=== PATIENT | female | born 1970 | race Caucasian/White ===

== ENCOUNTER 2020-03-07 10:25 | Emergency (ER) | payer OTHER ==
[2020-03-07] MEDS ORDERED: NA CHLORIDE 0.9% 500 ML ONE (11:29)
[2020-03-07 11:34] LABS: Absolute Lymphocytes (CBC) 2.3 K/uL (0.7-4.9); Basophils % 0.3 % (0-1.3); Hematocrit 41.5 % (36.0-45.0); Lymphocytes % 29.2 % (15.3-44.8); MPV 9.3 fL (7.6-11.3); RBC Red Blood Cell Count 4.67 M/uL (3.86-4.86)
--- NOTE | 2020-03-07 11:40 | RAD REPORT ---
EXAM DESCRIPTION: Pieter Single View03/07/2020 11:34 am CLINICAL HISTORY: Chest pain COMPARISON: 2017 FINDINGS: The lungs appear clear of acute infiltrate. The heart is normal size IMPRESSION: No acute abnormalities displayed
[2020-03-07 11:59] LABS: ALT/SGPT 28 U/L (12-78); AST/SGOT 15 U/L (15-37); Albumin 3.6 g/dL (3.4-5.0); Alkaline Phosphatase 113 U/L (45-117); BUN Blood Urea Nitrogen 11 mg/dL (7-18); Bicarbonate 29 mmol/L (21-32); Bilirubin Direct 0.1 mg/dL (0-0.2); Bilirubin Total 0.3 mg/dL (0.2-1.0); Glucose Level 107 mg/dL (74-106); Magnesium 2.4 mg/dL (1.8-2.4); NT PRO-BNP 148 pg/mL (<125); Potassium 4.2 mmol/L (3.5-5.1); Protein, Total 7.6 g/dL (6.4-8.2); Sodium Level 143 mmol/L (136-145); Troponin (Emerg Dept Use Only) < 0.02 ng/mL (0.0-0.045)
[2020-03-07 12:10] LABS: Urine Blood 1+ (NEG); Urine Glucose NEGATIVE (NEG); Urine Protein NEGATIVE (NEG); Urine pH 6.5 (5.0-7.0)
--- NOTE | 2020-03-07 12:19 | RAD REPORT ---
EXAM DESCRIPTION: CT - Head C Spine Mpr Wo Con - 03/07/2020 12:08 pm CLINICAL HISTORY: Numbness and radiculopathy COMPARISON: None. TECHNIQUE: Computed axial tomography of the head and cervical spine was obtained. Sagittal and coronal reconstruction was performed. All CT scans are performed using dose optimization technique as appropriate and may include automated exposure control or mA/KV adjustment according to patient size. FINDINGS: An intracranial bleed is not seen. The ventricles are normal in caliber. An extra-axial fl uid collection is not noted.Fluid within the visualized sinuses and mastoids is not seen A cervical fracture is not visualized. No dislocation is noted. Spinal stenosis is not noted. A large disc bulge/herniation not seen IMPRESSION: No acute intracranial abnormality is seen. A cervical fracture is not visualized. No spinal stenosis. If the patient continues to have symptoms to suggest intracranial /spinal cord/spinal canal pathology then MRI would be recommended
--- NOTE | 2020-03-07 12:22 | ER ---
Nurse's Notes [facility] Name: Venice Esteves Age: 49 yrs Sex: Female : 1970 Arrival Date: 03/07/2020 Time: 10:27 Bed 13 Private MD: Diagnosis: Pain in right forearm;Pain in right upper arm;Fibromyalgia Presentation: 03/07 10:42 Chief complaint: Patient states: "my right forearm started feeling sensitive on Saturday aa5 and now the feeling is going up my arm, it also hurts, like it correia and stings but also feels numb and tingling". Pt states "other than my arm, I feel fine". 10:42 Acuity: AAKASH 3 aa5 10:42 Method Of Arrival: Ambulatory aa5 10:42 Coronavirus screen: Client denies travel out of the [place] in the last 14 days. Pt aa5 reports baseline smoker's cough. Ebola Screen: Patient negative for fever greater than or equal to 101.5 degrees Fahrenheit, and additional compatible Ebola Virus Disease symptoms. Initial Sepsis Screen: Does the patient meet any 2 criteria? No. Patient's initial sepsis screen is negative. Does the patient have a suspected source of infection? No. Patient's initial sepsis screen is negative. Risk Assessment: Do you want to hurt yourself or someone else? Patient reports no desire to harm self or others. Onset of symptoms was February 2020. 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 - Social history:: Smoking status: Patient reports the use of cigarette tobacco products, smokes one pack cigarettes per day. - Family history:: not pertinent. Screenin:00 Abuse screen: Denies threats or abuse. Denies injuries from another. Nutritional ca1 screening: No deficits noted. Tuberculosis screening: No symptoms or risk factors identified. Fall Risk IV access (20 points). Assessment: 11:00 General: Appears in no apparent distress. comfortable, Behavior is calm, cooperative, ca1 appropriate for age. Pain: Complains of pain in right arm Pain does not radiate. Pain currently is 5 out of 10 on a pain scale. Quality of pain is described as throbbing, Pain began 4 days ago Is continuous. Neuro: Level of Consciousness is awake, alert, obeys commands, Oriented to person, place, time, situation. Cardiovascular: Heart tones S1 S2 Capillary refill < 3 seconds Patient's skin is warm and dry. Rhythm is sinus rhythm. Respiratory: Airway is patent Respiratory effort is even, unlabored, Respiratory pattern is regular, symmetrical, Breath sounds are clear bilaterally. GI: Abdomen is round non-distended, Bowel sounds present X 4 quads. Abd is soft and non tender X 4 quads. : No deficits noted. No signs and/or symptoms were reported regarding the genitourinary system. EENT: No deficits noted. No signs and/or symptoms were reported regarding the EENT system. Derm: Skin is intact, is healthy with good turgor, Skin is pink, warm \\T\\ dry. Musculoskeletal: Circulation, motion, and sensation intact. Capillary refill < 3 seconds. 11:51 Reassessment: Patient appears in no apparent distress at this time. Patient and/or ca1 family updated on plan of care and expected duration. Pain level reassessed. Patient is alert, oriented x 3, equal unlabored respirations, skin warm/dry/pink. 12:26 Reassessment: Patient appears in no apparent distress at this time. Patient is alert, ca1 oriented x 3, equal unlabored respirations, skin warm/dry/pink. Vital Signs: 10:42 BP 123 / 78; Pulse 80; Resp 18 S; Temp 98.1(O); Pulse Ox 100% on R/A; Weight 86.18 kg aa5 (R); Height 5 ft. 4 in. (162.56 cm) (R); Pain 5/10; 11:51 BP 123 / 76; Pulse 83; Resp 15 S; Pulse Ox 100% on R/A; ca1 11:58 BP 124 / 72 RA; ca1 11:58 BP 121 / 70 LA; ca1 12:26 BP 130 / 80; Pulse 75; Resp 15 S; Pulse Ox 100% on R/A; ca1 10:42 Body Mass Index 32.61 (86.18 kg, 162.56 cm) aa5 ED Course: 10:27 Patient arrived in ED. ag5 10:42 Arm band placed on Patient placed in an exam room, on a stretcher. aa5 10:54 Acob, Lali, RN is Primary Nurse. ca1 10:56 Thee Ojeda MD is Attending Physician. adilene 11:00 Patient has correct armband on for positive identification. Placed in gown. Bed in low ca1 position. Call light in reach. Side rails up X2. residential monitor on. Pulse ox on. NIBP on. Warm blanket given. 11:02 Triage completed. aa5 11:10 No provider procedures requiring assistance completed. Initial lab(s) drawn, by tx, ca1 sent to lab. Inserted saline lock: 20 gauge in left antecubital area, using aseptic technique. Blood collected. 11:28 EKG done, by technology trainer. reviewed by Thee Ojeda MD. at1 11:30 Urine collected: clean catch specimen, clear. ca1 11:34 XRAY Chest (1 view) In Process Unspecified. EDMS 12:06 CT Head C Spine In Process Unspecified. EDMS 12:21 Jonas Payton MD is Referral Physician. adilene 12:21 Regan Carlos MD is Referral Physician. adilene 12:43 IV discontinued, intact, bleeding controlled, No redness/swelling at site. Pressure ca1 dressing applied. Administered Medications: 11:10 Drug: NS 0.9% 500 ml Route: IV; Rate: bolus; Site: left antecubital; ca1 11:50 Follow up: Response: No adverse reaction; IV Status: Completed infusion; IV Intake: ca1 500ml 12:17 Drug: ProTONIX 40 mg Route: IVP; Site: left antecubital; ca1 12:40 Follow up: Response: No adverse reaction ca1 12:19 Drug: Aspirin 162 mg Route: PO; ca1 12:40 Follow up: Response: No adverse reaction ca1 12:23 Drug: Decadron - Dexamethasone 10 mg Route: IVP; Site: left antecubital; ca1 12:40 Follow up: Response: No adverse reaction ca1 Intake: 11:50 IV: 500ml; Total: 500ml. ca1 Outcome: 12:21 Discharge ordered by . adilene 12:43 Discharged to home ambulatory. ca1 12:43 Condition: stable 12:43 Discharge instructions given to patient, Instructed on discharge instructions, follow up and referral plans. medication usage, Demonstrated understanding of instructions, follow-up care, medications, Prescriptions given X 4. 12:43 Patient left the ED. ca1 Signatures: Dispatcher [employer] Thee Luz MD MD cha Calderon, Audri RN RN aa5 Sindy Benavides, machine set up EKG Tat1 Lali Lerner RN RN ca1 Virgil Louis ag5 Corrections: (The following items were deleted from the chart) 11:04 10:42 Coronavirus screen: Client denies travel out of the [place] in the last 14 days. aa5 aa5
--- NOTE | 2020-03-07 12:22 | EDPHYS ---
Physician Documentation [facility] Name: Venice Esteves Age: 49 yrs Sex: Female : 1970 Arrival Date: 03/07/2020 Time: 10:27 Bed 13 Private MD: ED Physician Thee Ojeda HPI: 03/07 12:08 This 49 yrs old Female presents to ER via Ambulatory with complaints of Arm adilene Pain, Numbness. 12:08 The patient or guardian complains of pain, that is acute. The complaints affect the adilene right bicep, dorsal aspect of right forearm, right tricep and palmar aspect of right forearm. Context: The problem was sustained at an unknown location, resulted from unknown cause. Onset: The symptoms/episode began/occurred 3 day(s) ago. Treatment prior to arrival includes: no previous treatment. Modifying factors: The symptoms are alleviated by nothing. Associated signs and symptoms: The patient has no apparent associated signs or symptoms. Severity of symptoms: At their worst the symptoms were mild, in the emergency department the symptoms are unchanged. The patient has not experienced similar symptoms in the past. 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 - Social history:: Smoking status: Patient reports the use of cigarette tobacco products, smokes one pack cigarettes per day. - Family history:: not pertinent. ROS: 12:08 Constitutional: Negative for fever, chills, and weight loss, Eyes: Negative for injury, adilene pain, redness, and discharge, ENT: Negative for injury, pain, and discharge, Cardiovascular: Negative for chest pain, palpitations, and edema, Respiratory: Negative for shortness of breath, cough, wheezing, and pleuritic chest pain, Abdomen/GI: Negative for abdominal pain, nausea, vomiting, diarrhea, and constipation, Back: Negative for injury and pain, : Negative for injury, bleeding, discharge, and swelling, Skin: Negative for injury, rash, and discoloration, Neuro: Negative for headache, weakness, numbness, tingling, and seizure, Psych: Negative for depression, anxiety, suicide ideation, homicidal ideation, and hallucinations, Allergy/Immunology: Negative for hives, rash, and allergies, Endocrine: Negative for neck swelling, polydipsia, polyuria, polyphagia, and marked weight changes, Hematologic/Lymphatic: Negative for swollen nodes, abnormal bleeding, and unusual bruising. 12:08 Neck: Positive for pain with movement, pain at rest. 12:08 MS/extremity: Positive for pain, of the right arm. Exam: 12:08 Constitutional: This is a well developed, well nourished patient who is awake, alert, adilene and in no acute distress. Head/Face: Normocephalic, atraumatic. Eyes: Pupils equal round and reactive to light, extra-ocular motions intact. Lids and lashes normal. Conjunctiva and sclera are non-icteric and not injected. Cornea within normal limits. Periorbital areas with no swelling, redness, or edema. ENT: Nares patent. No nasal discharge, no septal abnormalities noted. Tympanic membranes are normal and external auditory canals are clear. Oropharynx with no redness, swelling, or masses, exudates, or evidence of obstruction, uvula midline. Mucous membranes moist. Neck: Trachea midline, no thyromegaly or masses palpated, and no cervical lymphadenopathy. Supple, full range of motion without nuchal rigidity, or vertebral point tenderness. No Meningismus. Chest/axilla: Normal chest wall appearance and motion. Nontender with no deformity. No lesions are appreciated. Cardiovascular: Regular rate and rhythm with a normal S1 and S2. No gallops, murmurs, or rubs. Normal PMI, no JVD. No pulse deficits. Respiratory: Lungs have equal breath sounds bilaterally, clear to auscultation and percussion. No rales, rhonchi or wheezes noted. No increased work of breathing, no retractions or nasal flaring. Abdomen/GI: Soft, non-tender, with normal bowel sounds. No distension or tympany. No guarding or rebound. No evidence of tenderness throughout. Back: No spinal tenderness. No costovertebral tenderness. Full range of motion. Skin: Warm, dry with normal turgor. Normal color with no rashes, no lesions, and no evidence of cellulitis. MS/ Extremity: Pulses equal, no cyanosis. Neurovascular intact. Full, normal range of motion. Neuro: Awake and alert, GCS 15, oriented to person, place, time, and situation. Cranial nerves II-XII grossly intact. Motor strength 5/5 in all extremities. Sensory grossly intact. Cerebellar exam normal. Normal gait. Psych: Awake, alert, with orientation to person, place and time. Behavior, mood, and affect are within normal limits. 12:08 Musculoskeletal/extremity: Extremities: all appear grossly normal, with no appreciated pain with palpation, ROM: full active range of motion, full passive range of motion, Pulses: noted to be 4+ in the bilateral radial, brachial, femoral, popliteal, posterior tibial and and dorsalis pedis arteries., Sensation intact. Compartment Syndrome exam of affected extremity: is normal. Joints: All joints appear normal with full range of motion. DVT Exam: no swelling, negative Homans' sign noted on exam, no appreciated bluish discoloration, no erythema, no increased warmth, pain, tenderness. 12:08 Neuro: Orientation: is normal, appropriate for stated age, no acute changes, Mentation: is normal, appropriate for stated age, no acute changes, Memory: is normal, appropriate for stated age, no acute changes, Cranial nerves: grossly normal, is grossly normal based on the patient's age, no acute changes, Cerebellar function: is grossly normal, is grossly normal based on the patient's age, no acute changes, Motor: is normal, Sensation: no obvious gross deficits, appropriate no acute changes, Gait: is steady, appropriate for age, Deep tendon reflexes are 2+ (normal) in the bilateral brachioradialis, bicep, tricep and patellar and Achilles tendons, Babinski testing is normal. Vital Signs: 10:42 BP 123 / 78; Pulse 80; Resp 18 S; Temp 98.1(O); Pulse Ox 100% on R/A; Weight 86.18 kg aa5 (R); Height 5 ft. 4 in. (162.56 cm) (R); Pain 5/10; 11:51 BP 123 / 76; Pulse 83; Resp 15 S; Pulse Ox 100% on R/A; ca1 11:58 BP 124 / 72 RA; ca1 11:58 BP 121 / 70 LA; ca1 12:26 BP 130 / 80; Pulse 75; Resp 15 S; Pulse Ox 100% on R/A; ca1 10:42 Body Mass Index 32.61 (86.18 kg, 162.56 cm) aa5 MDM: 10:56 Patient medically screened. [facility] 12:14 Differential diagnosis: contusion, tendonitis. Data reviewed: vital signs, nurses [facility] notes, lab test result(s), EKG, radiologic studies, CT scan, plain films. Data interpreted: radiation monitor: rate is 83 beats/min, rhythm is regular, Pulse oximetry: on room air is 100 %. Test interpretation: by ED physician or midlevel provider: ECG, plain radiologic studies. 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 03/07 10:57 Order name: Basic Metabolic Panel; Complete Time: 12:03 [facility] 03/07 10:57 Order name: CBC with Diff; Complete Time: 11:48 [facility] 03/07 10:57 Order name: LFT's; Complete Time: 12:03 [facility] 03/07 10:57 Order name: Magnesium; Complete Time: 12:03 [facility] 03/07 10:57 Order name: NT PRO-BNP; Complete Time: 12:03 [facility] 03/07 10:57 Order name: Troponin (emerg Dept Use Only); Complete Time: 12:03 [facility] 03/07 10:57 Order name: XRAY Chest (1 view); Complete Time: 11:48 [facility] 03/07 10:57 Order name: EKG; Complete Time: 10:58 [facility] 03/07 11:54 Order name: Urine Dipstick--Ancillary (enter results); Complete Time: 12:16 03/07 11:55 Order name: CT Head C Spine [facility] 03/07 10:57 Order name: Cardiac monitoring; Complete Time: 11:34 [facility] 03/07 10:57 Order name: EKG - Nurse/Tech; Complete Time: 11:34 [facility] 03/07 10:57 Order name: IV Saline Lock; Complete Time: 11:34 [facility] 03/07 10:57 Order name: Labs collected and sent; Complete Time: 11:34 [facility] 03/07 10:57 Order name: O2 Per Protocol; Complete Time: 11:34 [facility] 03/07 10:57 Order name: O2 Sat Monitoring; Complete Time: 11:34 [facility] 03/07 10:57 Order name: Urine Dipstick-Ancillary (obtain specimen); Complete Time: 11:34 [place] 03/07 11:55 Order name: Bilateral blood pressure; Complete Time: 11:58 adilene Administered Medications: 11:10 Drug: NS 0.9% 500 ml Route: IV; Rate: bolus; Site: left antecubital; ca1 11:50 Follow up: Response: No adverse reaction; IV Status: Completed infusion; IV Intake: ca1 500ml 12:17 Drug: ProTONIX 40 mg Route: IVP; Site: left antecubital; ca1 12:40 Follow up: Response: No adverse reaction ca1 12:19 Drug: Aspirin 162 mg Route: PO; ca1 12:40 Follow up: Response: No adverse reaction ca1 12:23 Drug: Decadron - Dexamethasone 10 mg Route: IVP; Site: left antecubital; ca1 12:40 Follow up: Response: No adverse reaction ca1 Disposition: 03/07/20 12:21 Discharged to Home. Impression: Pain in right forearm, Pain in right upper arm, Fibromyalgia. - Condition is Stable. - Discharge Instructions: Cervical Radiculopathy, Myofascial Pain Syndrome and Fibromyalgia, Musculoskeletal Pain, Cryotherapy, [id number], Cryotherapy, Cervical Radiculopathy, [id number]. - Prescriptions for Medrol (Loy) 4 mg Oral Tablets, Dose Pack - take 1 tablet by ORAL route as directed - follow package instructions; 1 packet. Motrin IB 200 mg Oral Tablet - take 2 tablet by ORAL route every 6 hours As needed as needed with food; 30 tablet. Cyclobenzaprine 5 mg Oral Tablet - take 1 tablet by ORAL route 3 times per day As needed; 15 tablet. Protonix 40 mg Oral Tablet - take 1 tablet by ORAL route once daily; 30 tablet. - Medication Reconciliation Form, Thank You Letter, Antibiotic Education, Prescription Opioid Use form. - Follow up: Private Physician; When: 2 - 3 days; Reason: Recheck today's complaints, Continuance of care, Re-evaluation by your physician. Follow up: Jonas Payton MD; When: 2 - 3 days; Reason: Recheck today's complaints, Continuance of care, Re-evaluation by your physician. Follow up: Regan Carlos MD; When: 2 - 3 days; Reason: Recheck today's complaints, Continuance of care, Re-evaluation by your physician. - Problem is new. - Symptoms have improved. Signatures: Dispatcher [employer] EDMS Thee Ojeda MD MD cha Calderon, Audri, RN RN aa5 Lali Lerner RN RN ca1 Corrections: (The following items were deleted from the chart) 12:43 12:21 03/07/2020 12:21 Discharged to Home. Impression: Pain in right forearm; Pain in ca1 right upper arm; Fibromyalgia. Condition is Stable. Forms are Medication Reconciliation Form, Thank You Letter, Antibiotic Education, Prescription Opioid Use. Follow up: Private Physician; When: 2 - 3 days; Reason: Recheck today's complaints, Continuance of care, Re-evaluation by your physician. Follow up: Jonas Payton; When: 2 - 3 days; Reason: Recheck today's complaints, Continuance of care, Re-evaluation by your physician. Follow up: Regan Carlos; When: 2 - 3 days; Reason: Recheck today's complaints, Continuance of care, Re-evaluation by your physician. Problem is new. Symptoms have improved. adilene
[2020-03-07] MEDS ORDERED: dexAMETHasone 4 MG/ML VIAL ONE (12:27)
[2020-03-07] MEDS ORDERED: ASPIRIN 81 MG CHEWABLE TABLET ONE (12:27)
[2020-03-07] MEDS ORDERED: PANTOPRAZOLE 40 MG INJ ONE (12:30)
[2020-03-07] MEDS ORDERED: WATER FOR INJ,STERILE 10 ML ONE (12:30)
[2020-03-07 13:05] VITALS: TEMP 98.1; O2SAT 100
[2020-03-07 13:09] VITALS: BP 130/80
== END 2020-03-07 12:43 | disposition home or self-care (01) ==
LOC: ER 10:25
DX: M79.621 Pain in right upper arm (principal); M79.7 Fibromyalgia; F17.210 Nicotine dependence, cigarettes, uncomplicated; Z88.5 Allergy status to narcotic agent
CPT/HCPCS: 96361; 93005; 85025; 80048; 36415; 83735; 80076; 81003; 84484; 83880; 70450; 72125; 71045; 96375; 96374; 99285; J1100; C9113; J7040